=== PATIENT | female | born 1990 | race Caucasian/White ===

== ENCOUNTER 2016-05-23 13:54 | Emergency (ER) | payer BC ==
[~2016-05-23] VITALS: Ht 157.5 cm; Wt 61.7 kg
[2016-05-23 14:00] VITALS: BP 118/66; PULSE 86; RESP 19; TEMP 98.5; O2SAT 99
--- NOTE | 2016-05-23 14:00 | NUR ---
Patient triaged and placed in waiting room. VSS and patient appears in no acute distress at this time. Accompanied by FRIENDS, awaiting available bed, and MD notified of need for MSE.
--- NOTE | 2016-05-23 15:08 | NUR ---
DR VAZQUEZ AT BEDSIDE FOR EVALUATION
[2016-05-23] MEDS ORDERED: KETOROLAC TROMETHAMINE 60 MG/2 ML VIAL IM ONE (15:30)
[2016-05-23] MEDS ORDERED: DEXAMETHASONE SOD PHOSPHATE 10 MG/ML VIAL IM ONE (15:30)
--- NOTE | 2016-05-23 15:30 | NUR ---
Patient ambulated to bed 1
--- NOTE | 2016-05-23 15:31 | NUR ---
Patient in bed, alert and oriented x4. Patient was playing football wednesday and noticed when she threw ball her lower back hurt. has had reoccurring lower back pain for years. Denies any trauma. Denies any fall/known injury. States sometimes pain radiates to left buttock. No deformities. No other complaints/injuries per patient or noted.
[2016-05-23 17:19] VITALS: BP 118/66; PULSE 86; RESP 19; TEMP 98.5; O2SAT 99
--- NOTE | 2016-05-23 17:19 | NUR ---
Patient given written and verbal discharge instructions and verbalizes understanding. ER MD discussed with patient the results and treatment provided. Given copies of tests performed in ER. Patient in stable condition. ID arm band removed. Rx of Ibuprofen 600 given. Patient educated on pain management and to follow up with PMD. Pain Scale 2/10. Opportunity for questions provided and answered.
== END 2016-05-23 17:19 | disposition home or self-care (01) ==
LOC: SED 13:54
DX: S39.012A Strain of muscle, fascia and tendon of lower back, initial encounter (principal); X58.XXXA Exposure to other specified factors, initial encounter; Y93.61 Activity, american tackle football; Y92.89 Other specified places as the place of occurrence of the external cause; Y99.8 Other external cause status
CPT/HCPCS: 72100; 81025; 96372; 99284; J1100; J1885